=== PATIENT | female | born 1980 | race Caucasian/White ===

== ENCOUNTER → 2017-10-01 15:47 | Outpatient (CLI) | payer OTHER, SELFPAY ==
--- NOTE | 2017-10-01 15:56 | RAD_ITS ---
STUDY: X-RAY - RIGHT KNEE REASON FOR EXAM: Female, 36 years old. Bilateral knee pain. TECHNIQUE: 4 view(s) of the knee including weight bearing AP view. COMPARISON: None. FINDINGS: Normal visualized distal femur. Normal visualized proximal tibia and fibula. Normal proximal tibiofibular articulation. There is no acute fracture, dislocation or destructive osseous pathology. There is mild degenerative arthrosis of the medial femorotibial compartment. There is mild degenerative arthrosis of the lateral femorotibial compartment. There is mild degenerative arthrosis of the patellofemoral articulation. There is no demonstrated joint effusion. The soft tissue structures are unremarkable. RAD/Knee 4 or More Views IMPRESSION: Minimal arthrosis of the right knee. Electronically Signed: James Elise DO at 22:06 EDT Tel [phone], Service support ,
--- NOTE | 2017-10-01 16:00 | RAD_ITS ---
STUDY: X-RAY - LEFT KNEE REASON FOR EXAM: Female, 36 years old. Bilateral knee pain. TECHNIQUE: 4 view(s) of the knee, including an AP weightbearing view. COMPARISON: None. FINDINGS: Normal visualized distal femur. Normal visualized proximal tibia and fibula. Normal proximal tibiofibular articulation. There is no acute fracture, dislocation or destructive osseous pathology. Normal medial femorotibial compartment. There is mild degenerative arthrosis of the lateral femorotibial compartment. There is mild degenerative arthrosis of the patellofemoral articulation. There is no demonstrated joint effusion. The soft tissue structures are unremarkable. RAD/Knee 4 or More Views IMPRESSION: Mild arthrosis of the left knee. Electronically Signed: James Elise DO at 22:09 EDT Tel [phone], Service support ,
== END ==
DX: M22.2X2 Patellofemoral disorders, left knee (principal); M22.2X1 Patellofemoral disorders, right knee
CPT/HCPCS: 73564

== ENCOUNTER 2017-12-22 07:33 | Emergency (ER) | payer OTHER, SELFPAY ==
[2017-12-22 07:33] VITALS: BP 139/91; PULSE 111; RESP 17; TEMP 36.2; O2SAT 98; BMI 48.4
--- NOTE | 2017-12-22 07:59 | ED.DCSUM_ITS ---
- ER Visit Summary Date of Service: 12/22/17 Chief Complaint: Cough, short of breath History of Present Illness: The patient is a 37 F with sore throat mild congestion for the past couple days. Patient states her throat was worse this morning with further sensation of swelling. She did take DayQuil equivalent this morning. She has taken this medication before with no difficulty. She has not had fever or chills. Physical Examination: Blood pressure is 139/91, temperature 97.2, heart rate 111, respiratory rate 17, pulse ox 98% on room air. Patient is sitting up on the side of the bed. She speaks in a hoarse voice. She does have mild stridor noted. TMs are clear bilaterally. She is moist mucous membranes. Posterior pharynx examination is unremarkable. There is mild bilateral cervical lymphadenopathy. Heart is regular rate and rhythm. Lung sounds clear. Abdomen is soft nontender. Test Results: CBC was normal white count hemoglobin 16.0. Chemistry studies reveal glucose of 130. test negative. Soft tissue neck x-ray reveals patent airway with questionable minimal narrowing of the subglottic trachea. CT neck with contrast reveals a patent airway. There is prominent nodes at both sides of the neck, likely reactive. No focal masses noted. Emergency Department Course and Treatment: Patient was given a racemic epinephrine treatment along with IV Benadryl and Solu-Medrol. Upon completion of imaging studies a dose of Rocephin was given. Patient has been observed for 4 hours. At this time she is significantly improved. She is able to lie back in the bed without difficulty. She is tolerating secretions well and does feel improved. Patient will be given steroid taper at home along with Benadryl and Keflex. Treatment Plan: [] Disposition: Discharge Impression: Pharyngitis This note was generated with [employer] dictation software. It may contain incorrect words, spelling, and punctuation that were not noted in review of the chart prior to signing ED Disposition - Plan for ED Patient: Chief Complaint: Cold Sx Referrals: [facility] ,Out of [Primary Care Provider] -
[2017-12-22 08:04] VITALS: PULSE 99; RESP 18
[2017-12-22] MEDS: Racepinephrine HCl 0.5 ML VIAL.NEB. INHALATION (08:04)
--- NOTE | 2017-12-22 08:14 | RAD_ITS ---
STUDY: X-RAY - SOFT TISSUE NECK REASON FOR EXAM: Female, 37 years old. Difficulty breathing. TECHNIQUE: AP and lateral view(s) of the neck were obtained. # of Images: 2 COMPARISON: None. FINDINGS: Normal visualized nasopharynx, oropharynx, hypopharynx. Normal epiglottis. There is minimal narrowing of subglottic trachea Normal prevertebral soft tissue structures. Normal visualized osseous structures. The soft tissue structures are unremarkable. RAD/Neck for Soft Tissue IMPRESSION: Patient airway with questionable minimal narrowing of the subglottic trachea. Electronically Signed: Liang Mckeon MD at 8:40 EDT Tel , Service support ,
[2017-12-22] MEDS: MethylPREDNISolone 125 MG/2 ML Vial IV (08:18)
[2017-12-22] MEDS: DiphenhydrAMINE 50 MG/ML Syringe 25 MG IV (08:18)
[2017-12-22] MEDS: 0.9% Normal Saline 1,000 ML 150 ML IV (08:18)
[2017-12-22 08:29] LABS: Absolute Lymphocyte Count 1.84 X10^3/ul (0.83-4.51); Absolute Neutrophil Count 6.5 X10^3/uL (2.0-7.7); Basophil# 0.04 X10^3/uL; Basophil% 0.4 % (0-1); Eosinophil# 0.23 X10^3/uL; Eosinophils% 2.5 % (0-5); Lymphocyte # 1.84 X10^3/ul (4.0); Lymphocyte % 19.7 % (19-41); Mean Corp Hgb Conc 32.7 g/gl (32-36); Mean Corpuscular Hgb 28.7 pg (27.0-32.0); Mean Corpuscular Volume 87.8 fL (81-99); Mean Platelet Vol. 9.1 fl (6.2-12.0); Monocyte# 0.76 X10^3/uL; Monocyte% 8.1 % (0-10); Neutrophil # 6.46 X10^3/uL (2.7-7.7); Neutrophil % 69.2 % (47-70); Platelet Count 330 K/mm3 (150-450); RBC Distribution Width CV 13.7 % (11.6-14.6); RBC Distribution Width SD 44.2 fl (35.1-43.9); Red Blood Count 5.58 M/mm3 (4.2-5.4); White Blood Count 9.3 K/mm3 (4.4-11.0)
[2017-12-22 08:34] LABS: POSITIVE COUNT NO; POSITIVE DIFFERENTIAL NO; POSITIVE MORPHOLOGY NO
[2017-12-22 08:37] VITALS: PULSE 81; RESP 13; O2SAT 97
[2017-12-22 08:39] LABS: Anion Gap 8 (5-15); BUN 11 mg/dL (7-18); BUN/Creat Ratio 12.1 RATIO (10-20); Calcium,Total 8.7 mg/dL (8.5-10.1); Chloride 105 mmol/L (98-107); Creatinine, Serum 0.91 mg/dL (0.55-1.02); EST Glomerular Filtration Rate 75 mL/min (>60); Est Glom Filt Rate - Afr Amer 90 mL/min (>60); Estimated Creatinine Clearance 80.78 ml/min; Glucose 130 mg/dL (74-106); Potassium 3.5 mmol/L (3.5-5.1); Sodium Level 137 mmol/L (136-145)
[2017-12-22 08:46] LABS: Pregnancy, Serum, hCG Quali. NEGATIVE Negative (0-9 Nonpreg)
--- NOTE | 2017-12-22 08:58 | CT_ITS ---
STUDY: CT SOFT TISSUE NECK WITH CONTRAST REASON FOR EXAM: Female, 37 years old. Difficulty swallowing and cold symptoms. RADIATION DOSAGE (If Supplied By Facility): CTDIvol = ( 23.36 ) mGy, DLP = ( 781.61 ) mGycm TECHNIQUE: The patient was scanned in a multi-detector CT scanner. High resolution transaxial imaging was performed following intravenous administration of 75mL ml of Isovue 300 contrast material. Sagittal and coronal images were reconstructed. # of Images: 328 Individualized dose optimization techniques were used for this CT. COMPARISON: None. FINDINGS: Normal bilateral parotid glands. Normal bilateral speech lang path spaces. Normal bilateral parapharyngeal spaces. Normal bilateral sublingual and submandibular glands and spaces. Normal visualized nasopharynx. Is minimal prominence of the posterior nasopharynx. Normal perivertebral space. Normal visualized bilateral faucial tonsils. The visualized tongue, tongue base and oropharynx are normal. There are slightly enlarged lymph nodes of the neck, with preservation of normal kylah architecture, consistent with a reactive lymph hyperplasia. There is no demonstrated solid or cystic mass lesion. There is no abnormal contrast enhancement. Normal epiglottis, bilateral vallecula and hypopharynx. The pre-epiglottic and paraglottic adipose spaces are normal. Normal visualized bilateral piriform sinuses, aryepiglottic folds, vocal cords, and arytenoid-cricoid articulations. Normal subglottic trachea. Normal bilateral lobes of the thyroid gland. Normal visualized pulmonary apices. Normal visualized paranasal sinuses. There is straightening of the cervical spine. CT/Soft Tissue Neck WITH Contrast IMPRESSION: 1. Patent airway. 2. Prominent nodes on both sides of the neck likely reactive. 3. No focal mass is seen. Electronically Signed: Liang Mckeon MD at 9:37 EDT Tel , Service support ,
[2017-12-22 10:55] VITALS: BP 123/83; PULSE 89; RESP 24; O2SAT 94
[2017-12-22] MEDS: Ceftriaxone 1 GM/50 ML BAG IV (10:56)
--- NOTE | 2017-12-22 11:51 | ED.DEP ---
ED Disposition - Plan for ED Patient: Disposition: Home or Assisted Living Chief Complaint: Cold Sx Instructions: ED Strep Pharyngitis Poss Prescriptions: Cephalexin [Keflex] 500 mg PO Q6 #40 capsule DiphenhydrAMINE [Benadryl] 50 mg PO TID PRN PRN #20 capsule PRN Reason: Allergies Prednisone 10 mg PO DAILY #63 tablet Referrals: [facility] Doctor,Out of [Primary Care Provider] - 5-7 Days
--- NOTE | 2017-12-22 11:56 | DCINST.ED_ITS ---
ED Disposition - Plan for ED Patient: Disposition: Home or Assisted Living Chief Complaint: Cold Sx Instructions: ED Strep Pharyngitis Poss Prescriptions: Cephalexin [Keflex] 500 mg PO Q6 #40 capsule DiphenhydrAMINE [Benadryl] 50 mg PO TID PRN PRN #20 capsule PRN Reason: Allergies Prednisone 10 mg PO DAILY #63 tablet Referrals: [facility] Doctor,Out of [Primary Care Provider] - 5-7 Days
== END 2017-12-22 12:28 | disposition home or self-care (01) ==
PROVIDERS: Emergency Provider Emergency Medicine
DX: J02.9 Acute pharyngitis, unspecified (principal)
CPT/HCPCS: 70360; 70491; 80048; 84703; 85025; 94640; 96361; 96365; 96366; 96375; 99284; J7030; Q9967; A4216

== ENCOUNTER → 2019-05-08 06:18 | Outpatient (CLI) | payer OTHER, SELFPAY ==
[2019-05-08 07:26] LABS: Glucose 75GTT - 30 minutes 166 mg/dL (100-160)
[2019-05-08 07:27] LABS: Glucose 75GTT - Fasting 99 mg/dL (70-99)
[2019-05-08 08:14] LABS: Glucose 75GTT - 60 minutes 163 mg/dL (100-160)
[2019-05-08 08:24] LABS: Insulin 15.7 mU/L (2.6-37.6)
[2019-05-08 09:06] LABS: Glucose 75GTT - 120 minutes 81 mg/dL (70-140)
== END ==
PROVIDERS: Referring Provider Obstetrics & Gynecology Reproductive Endocrinology; Visit Provider Obstetrics & Gynecology Reproductive Endocrinology
DX: E28.2 Polycystic ovarian syndrome (principal)
CPT/HCPCS: 36415; 82951; 82952; 83525

== ENCOUNTER 2020-06-20 05:45 | Emergency (ER) | payer OTHER, SELFPAY ==
[2020-06-20 05:46] VITALS: BP 129/74; PULSE 52; RESP 18; TEMP 36.9; O2SAT 97; BMI 58.6
--- NOTE | 2020-06-20 06:01 | US_ITS ---
STUDY: ABDOMINAL ULTRASOUND - RIGHT UPPER QUADRANT REASON FOR VISIT: Female, 39 years old pain TECHNIQUE: Ultrasound evaluation of the right upper quadrant was performed with real-time and static bangura-scale imaging. TECHNICAL QUALITY: Adequate. COMPARISON: None. FINDINGS: Liver: The liver measures 16.0 cm. There is normal echogenicity of the liver. The bile ducts are within normal limits. There is hepatic color flow. The direction of portal flow is hepatopetal. There is no demonstrated mass lesion. Gallbladder: Normal distended gallbladder. The gallbladder wall measures 2 mm. There is a positive sonographic Ashley''s sign. There is no pericholecystic fluid. There is a solitary echogenic gallstone within the gallbladder. Common Bile Duct (C.B.D.): The common bile duct measures 5 mm. Pancreas: Normal size of the head, body and tail of the pancreas. There is normal echogenicity of the pancreas. There is no demonstrated pancreatic mass or cyst. Right Kidney: Normal size of the right kidney. The right kidney measures 11.2 cm. Normal renal cortex. The right cortex measures 1.3 cm. There is no demonstrated renal mass or cyst. There is no right hydronephrosis. US/Gallbladder IMPRESSION: Cholelithiasis with moderately distended gallbladder and a positive sonographic Ashley sign which may represent acute or chronic cholecystitis. Clinical correlation is recommended. Electronically Signed: Fei Pena MD at 8:29 EDT Tel , Service support ,
[2020-06-20 06:10] LABS: Absolute Lymphocyte Count 0.87 X10^3/uL (0.83-4.51); Basophil# 0.03 X10^3/uL; Basophil% 0.3 % (0-1); Eosinophils% 2.3 % (0-5); Hematocrit 41.2 % (37-47); Hemoglobin 13.5 g/dL (12.0-15.0); Lymphocyte # 0.87 X10^3/ul (0.83-4.51); Lymphocyte % 10.1 % (19-41); Mean Corp Hgb Conc 32.8 g/dL (32-36); Mean Corpuscular Hgb 28.9 pg (27.0-32.0); Mean Corpuscular Volume 88.2 fL (81-99); Mean Platelet Vol. 9.6 fl (6.2-12.0); Monocyte# 0.43 X10^3/uL; NRBC Flagged by Analyzer 0 % (0-5); Neutrophil # 7.03 X10^3/uL (2.7-7.7); Platelet Count 348 K/mm3 (150-450); RBC Distribution Width CV 14.3 % (11.6-14.6); RBC Distribution Width SD 45.5 fl (35.1-43.9); Red Blood Count 4.67 M/mm3 (4.2-5.4); White Blood Count 8.6 K/mm3 (4.4-11.0)
[2020-06-20] MEDS: Morphine 4 MG/ML Syringe IV (06:15)
[2020-06-20] MEDS: Ondansetron 4 MG/2 ML Vial IV (06:15)
[2020-06-20 06:28] LABS: AST(SGOT) 56 U/L (15-37); Alanine Aminotransfer ALT/SGPT 47 U/L (13-56); Albumin, Serum 2.7 g/dL (3.2-5.0); Alkaline Phosphatase 81 U/L (45-117); Anion Gap 8 (5-15); BUN 5 mg/dL (7-18); BUN/Creat Ratio 8.7 RATIO (10-20); Bilirubin, Direct < 0.05 mg/dL (0.00-0.30); Chloride 106 mmol/L (98-107); Creatinine, Serum 0.58 mg/dL (0.55-1.02); EST Glomerular Filtration Rate 125 mL/min (>60); Est Glom Filt Rate - Afr Amer 152 mL/min (>60); Estimated Creatinine Clearance 124.32 ml/min; Globulin 3.8 g/dL (2.2-4.2); Glucose 107 mg/dL (74-106); Lipase 46 U/L (73-393); Potassium 4.4 mmol/L (3.5-5.1); Protein, Total 6.5 g/dL (6.4-8.2); Sodium Level 137 mmol/L (136-145)
[2020-06-20] MEDS: 0.9% Normal Saline 1,000 ML 150 ML IV (06:32)
[2020-06-20 08:00] VITALS: BP 132/78; PULSE 58; RESP 15; O2SAT 99
[2020-06-20] MEDS: HYDROmorphone 0.5 MG/0.5 ML SYRINGE IV (08:41)
--- NOTE | 2020-06-20 09:01 | ED.DCSUM_ITS ---
History of Present Illness Chief Complaint: Abd Pain Informant: Patient Onset: Today Current Severity: Moderate Maximum Severity: Moderate Narrative: Patient presents secondary to upper abdominal pain. Patient is presently 22 weeks . She reports upper abdominal pain that woke her at 2 AM this morning. She believes she is having a gallbladder attack and reports history of similar, although her gallbladder has never formally been worked up. Patient does report nausea with a couple episodes of vomiting. No fever or chills. Past Medical History - Allergies and Home Meds Allergies/Adverse Reactions: Allergies No Known Allergies Allergy (Verified 06/20/20 05:46) Primary Care Physician: Care Physician,No Primary [Primary Care Provider] - Prior records reviewed: Yes Lives: Spouse/ Significant Other Smoking Status: Never smoker Review of Systems General: Denies: Chills, Fever Eyes: Denies: Visual changes - bilaterally ENT: Denies: Bilateral ear pain Cardiovascular: Denies: Chest pain Respiratory: Denies: Dyspnea, Cough Gastrointestinal: Reports: Abdominal pain, Nausea, Vomiting. Denies: Diarrhea Genitourinary: Denies: Dysuria Musculoskeletal: Denies: Swelling, Extremity Pain Neurological: Denies: Headache Hematologic: Denies: Easy bruising, Easy bleeding Allergy: Denies: Uticaria Physical Exam Vital Signs/Narrative: Vital Signs Temp Pulse Resp BP Pulse Ox 06/20/20 08:00 58 L 15 132/78 H 99 06/20/20 05:46 98.5 F 52 L 18 129/74 H 97 Inital Vital Signs reviewed: Yes General: Well nourished, Well developed Head: Normocephalic ENT: Moist mucous membranes Neck: Supple Cardiovascular: Regular rate, Regular rhythm Respiratory: No distress, CTA bilaterally Abdomen: Soft, Tender - Epigastric and right upper quadrant tenderness.. Negative for: Guarding, Rebound tenderness Extremities: Nontender Skin: Normal color Neurological: Alert, Oriented x3 Psychological: Normal affect Diagnostic/Tx/Re-eval IMPRESSION: Cholelithiasis with moderately distended gallbladder and a positive sonographic Ashley sign which may represent acute or chronic cholecystitis. Clinical correlation is recommended. 06/20/20 06:01 US Gallbladder [Gallbladder] [US] Stat Laboratory Results 06/20/20 06/20/20 05:57 05:57 WBC 8.6 RBC 4.67 Hgb 13.5 Hct 41.2 MCV 88.2 MCH 28.9 MCHC 32.8 RDW Std Deviation 45.5 H RDW Coeff of Fredrick 14.3 Plt Count 348 MPV 9.6 Immature Gran % (Auto) 0.300 Neut % (Auto) 82.0 H Lymph % (Auto) 10.1 L [place] % (Auto) 5.0 Eos % (Auto) 2.3 Baso % (Auto) 0.3 Absolute Neuts (auto) 7.0 Absolute Lymphs (auto) 0.87 Nucleated RBC % 0 Sodium 137 Potassium 4.4 Chloride 106 Carbon Dioxide 23.0 Anion Gap 8 BUN 5 L Creatinine 0.58 Estim Creat Clear Calc 124.32 Est GFR (MDRD) Af Amer 152 Est GFR (MDRD) Non-Af 125 BUN/Creatinine Ratio 8.7 L Glucose 107 H Calcium 9.0 Total Bilirubin 0.40 Direct Bilirubin < 0.05 AST 56 H ALT 47 Alkaline Phosphatase 81 Total Protein 6.5 Albumin 2.7 L Globulin 3.8 Lipase 46 L - Medical Decision Making Patient was initially given morphine and Zofran for pain control. CBC and chemistry studies largely unremarkable. AST is slightly elevated but remainder of LFTs are all normal. Patient is taken to ultrasound for right upper quadrant scan. This does reveal evidence of cholelithiasis with moderately distended gallbladder and a positive sonographic Ashley sign. This may represent acute or chronic cholecystitis. Gallbladder wall measures 2 mm and common bile duct measures 5 mm. There is no pericholecystic fluid. On repeat examination patient still notes pain. I spoke with Dr. Nieves, on- call for surgery. He requested we try Dilaudid for pain control and he will present to see the patient. This will be signed out to oncoming physician for final disposition. ED Disposition - Plan for ED Patient: Referrals: Care Physician,No Primary [Primary Care Provider] -
--- NOTE | 2020-06-20 09:52 | ED.RN ---
attempted to get heart tones without success. ob will be up to assess pt
[2020-06-20 10:01] VITALS: BP 138/79; PULSE 59; RESP 15; O2SAT 99
--- NOTE | 2020-06-20 10:23 | NURSING ---
Doppler FHT 140
--- NOTE | 2020-06-20 10:27 | PCM.CONS.GEN ---
Problem List (1) Right upper quadrant abdominal pain Status: Acute (2) Cholelithiasis Status: Acute Qualifiers: Cholelithiasis location: gallbladder Cholecystitis presence: without cholecystitis Biliary obstruction: without biliary obstruction Qualified Code(s): K80.20 - Calculus of gallbladder without cholecystitis without obstruction Reason for Consult Date of Consultation: 06/20/20 History of Present Illness: The patient is a 39 year old F Patient presents secondary to upper abdominal pain. Patient is presently 22 weeks . She reports upper abdominal pain that woke her at 2 AM this morning. She believes she is having a gallbladder attack and reports history of similar, although her gallbladder has never formally been worked up. Patient does report nausea with a couple episodes of vomiting. No fever or chills. Gallbladder ultrasound showed a solitary stone with no pericholecystic fluid with a normal gallbladder wall thickness. Past Medical History Allergies No Known Allergies Allergy (Verified 06/20/20 05:46) Home Medications: Ambulatory Orders Medication Instructions Recorded Metformin HCl [Metformin HCl ER] 750 mg PO BID 06/20/20 Vit No.130/Iron/Folic 1 each PO DAILY 06/20/20 [ Tablet] Surgical History: no surgical history Lives: Spouse/ Significant Other Smoking Status: Never smoker - *Family History Maternal History Items: No pertinent history Review of Systems Constitutional: Denies: Chills, Fever, Weight Change Gastrointestinal: Reports: Abdominal Pain, Nausea Patient Problems: Active and Suspected Problems Right upper quadrant abdominal pain (Acute) Cholelithiasis (Acute) - Physical Exam Vitals/I&O's: Vital Signs Temp Pulse Resp BP Pulse Ox 98.5 F 59 L 15 138/79 H 99 06/20/20 05:46 06/20/20 10:01 06/20/20 10:01 06/20/20 10:01 06/20/20 10:01 Oxygen Delivery Method Room Air Weight: 362 lb 14.094 oz Body Mass Index (BMI) 58.6 General: Alert, Oriented x3 Lungs: Clear to auscultation Cardiovascular: Regular rate, Regular Rhythm, No murmurs Abdomen: Soft - No real abdominal pain at this time. No rebound guarding or peritoneal signs are identified. She is morbidly obese. I cannot feel the fundus of the uterus. Laboratory Results 06/20/20 05:57: WBC 8.6, RBC 4.67, Hgb 13.5, Hct 41.2, MCV 88.2, MCH 28.9, MCHC 32.8, RDW Std Deviation 45.5 H, RDW Coeff of Fredrick 14.3, Plt Count 348, MPV 9.6, Immature Gran % (Auto) 0.300, Neut % (Auto) 82.0 H, Lymph % (Auto) 10.1 L, Stephenson % (Auto) 5.0, Eos % (Auto) 2.3, Baso % (Auto) 0.3, Absolute Neuts (auto) 7.0, Absolute Lymphs (auto) 0.87, Nucleated RBC % 0 06/20/20 05:57: Sodium 137, Potassium 4.4, Chloride 106, Carbon Dioxide 23.0, Anion Gap 8, BUN 5 L, Creatinine 0.58, Estim Creat Clear Calc 124.32, Est GFR (MDRD) Af Amer 152, Est GFR (MDRD) Non-Af 125, BUN/Creatinine Ratio 8.7 L, Glucose 107 H, Calcium 9.0, Total Bilirubin 0.40, Direct Bilirubin < 0.05, AST 56 H, ALT 47, Alkaline Phosphatase 81, Total Protein 6.5, Albumin 2.7 L, Globulin 3.8, Lipase 46 L Current Medications Sodium Chloride () 1,000 mls @ 150 mls/hr IV .Q6H40M [facility] Last Admin: 06/20/20 06:32 Dose: 150 mls/hr Documented by: Assessment/Plan All Active Problems Right upper quadrant abdominal pain (Acute) Cholelithiasis (Acute) Believe we can manage her as an outpatient fashion. I have counseled her though that if she were to develop another attack over the next several days we unfortunately are going to have to consider doing a laparoscopic cholecystectomy on her. However since she has not experienced any further attacks except for the one she had 3 years ago I think that there is a good chance that she is not going to have any problems with the remainder of her . I however have counseled her that once she has delivered she is going to seriously have to consider having her gallbladder removed to overt any further episodes of cholecystitis.
--- NOTE | 2020-06-20 10:36 | ED.DEP ---
ED Disposition - Plan for ED Patient: Instructions: ED Gallstones with Biliary Colic Prescriptions: Hydrocodone Bitart/Apap 5-325 [[place] 5MG-325MG] 1 tablet PO Q6H PRN PRN 3 Days #10 tablet PRN Reason: Pain Ondansetron [Zofran Odt] 4 mg PO Q8H PRN PRN #10 tablet PRN Reason: Nausea Referrals: Codey Nieves MD [STAFF PHYSICIAN] - Khushboo Malone MD [STAFF PHYSICIAN] -
[2020-06-20 10:44] VITALS: BP 140/83; PULSE 58; RESP 16
== END 2020-06-20 10:45 | disposition home or self-care (01) ==
PROVIDERS: Emergency Provider Emergency Medicine
DX: O26.892 Other specified pregnancy related conditions, second trimester (principal); O99.612 Diseases of the digestive system complicating pregnancy, second trimester; R10.9 Unspecified abdominal pain; K80.20 Calculus of gallbladder without cholecystitis without obstruction; Z3A.22 22 weeks gestation of pregnancy
CPT/HCPCS: 76705; 80048; 80076; 83690; 85025; 96361; 96374; 96375; 96376; 99283; J7030; A4216; J2405

== ENCOUNTER 2020-08-26 11:30 | Outpatient (RCR) | payer OTHER, SELFPAY | END 2020-09-01 23:59 | LOC: DC 11:30 | PROVIDERS: Visit Provider Obstetrics & Gynecology | DX: O24.410 Gestational diabetes mellitus in pregnancy, diet controlled (principal); Z3A.00 Weeks of gestation of pregnancy not specified | CPT/HCPCS: 97802; G0108 ==

== ENCOUNTER 2020-09-16 15:00 | Outpatient (RCR) | payer OTHER, SELFPAY | END 2020-09-16 23:59 | disposition home or self-care (01) | LOC: DC 15:00 | PROVIDERS: Visit Provider Obstetrics & Gynecology | DX: O24.410 Gestational diabetes mellitus in pregnancy, diet controlled (principal); Z3A.00 Weeks of gestation of pregnancy not specified ==

== ENCOUNTER 2020-10-17 18:45 | Inpatient (IN) | payer OTHER, SELFPAY ==
[2020-10-17] VITALS (14 sets, daily range): BP systolic 140–180; BP diastolic 82–99; PULSE 74–91; TEMP 37.2–37.3; O2SAT 99; BMI 55.2
[2020-10-17] MEDS: Lactated Ringers 1,000 ML 50 ML IV (19:45)
[2020-10-17 20:01] LABS: Absolute Lymphocyte Count 1.36 X10^3/uL (0.83-4.51); Absolute Neutrophil Count 8.2 X10^3/uL (2.0-7.7); Basophil# 0.05 X10^3/uL; Basophil% 0.5 % (0-1); Eosinophil# 0.16 X10^3/uL; Eosinophils% 1.5 % (0-5); Hematocrit 40.2 % (37-47); Hemoglobin 13.2 g/dL (12.0-15.0); Lymphocyte # 1.36 X10^3/ul (0.83-4.51); Lymphocyte % 13.1 % (19-41); Mean Corp Hgb Conc 32.8 g/dL (32-36); Mean Corpuscular Hgb 29.9 pg (27.0-32.0); Mean Platelet Vol. 11.4 fl (6.2-12.0); Monocyte# 0.59 X10^3/uL; Monocyte% 5.7 % (0-10); NRBC Flagged by Analyzer 0 % (0-5); Neutrophil % 78.7 % (47-70); Platelet Count 289 K/mm3 (150-450); RBC Distribution Width CV 13.2 % (11.6-14.6); RBC Distribution Width SD 43.4 fl (35.1-43.9); Red Blood Count 4.42 M/mm3 (4.2-5.4); White Blood Count 10.4 K/mm3 (4.4-11.0)
[2020-10-17 20:11] LABS: Bedside Glucose 103 mg/dL (70-110)
[2020-10-17] MEDS: Oxytocin 30 units/NS 500 ml 30 UNITS/500 ML IV.SOLN IV (20:40)
[2020-10-17 20:54] LABS: AST(SGOT) 25 U/L (15-37); Alanine Aminotransfer ALT/SGPT 43 U/L (13-56); Creatinine, Serum 0.76 mg/dL (0.55-1.02); EST Glomerular Filtration Rate 90 mL/min (>60); Est Glom Filt Rate - Afr Amer 109 mL/min (>60); Estimated Creatinine Clearance 94.88 ml/min; Uric Acid 5.4 mg/dL (2.6-6.0)
[2020-10-17 21:26] LABS: Bedside Glucose 103 mg/dL (70-110)
[2020-10-17] MEDS: Lactated Ringers 500 ML 999 ML IV (22:46)
[2020-10-18] VITALS (51 sets, daily range): BP systolic 104–155; BP diastolic 56–82; PULSE 58–120; TEMP 36.2–37.3; O2SAT 93–99
[2020-10-18] MEDS: fentaNYL-bupivacaine (epidural) 100 ML BAG EPIDURAL ×5 (00:08→19:46)
[2020-10-18] MEDS: Penicillin G 3,000,000 Units 50 ML 100 UNITS IV ×6 (01:00→20:48)
[2020-10-18 01:11] LABS: Bedside Glucose 84 mg/dL (70-110)
[2020-10-18] MEDS: Lactated Ringers 500 ML 999 ML IV (02:51)
[2020-10-18] MEDS: Lactated Ringers 1,000 ML 200 ML IV ×4 (03:59→20:29)
[2020-10-18 05:16] LABS: Bedside Glucose 89 mg/dL (70-110)
[2020-10-18 06:59] LABS: Protein, Urine (Random) 18.1 mg/dL (<11.9); Protein:Creat Ratio 139 mg/g CRE (0-200)
--- NOTE | 2020-10-18 08:38 | PCM.HP.OB ---
HPI - General General Date of Admission: 10/17/20 Chief Complaint: induction of labor HPI Narrative ANNE HERZOG, is a 39-year-old 1 para 0 who presents for induction of labor. EDC is 10/25/2020 by artificial reproductive technology dating. has been complicated to date by maternal obesity with BMI 55, gestational diabetes and she has been on Metformin but not insulin. She has a history of infertility. This was conceived through IVF. She is also had episodes of cholecystitis during the . [facility] Medical History (Updated 10/18/20 @ 08:[address] Sumaya Urbina MD) Gestational diabetes Infertility Home Medications metformin 750 mg PO BID 06/20/20 [History Last Taken 10/17/20 07:30] ondansetron 4 mg PO Q8H PRN PRN #10 tablet 06/20/20 [Rx Last Taken Unknown] vit no.[id number] 1 each PO DAILY 06/20/20 [History Last Taken 10/17/20 07:30] Allergy/AdvReac Type Severity Reaction Status Date / Time No Known Allergies Allergy Verified 06/20/20 05:46 Social History Smoking Status: Smoker, status unknown History Elective abortions Hx Para 0 Spontaneous abortions Hx # Term Pregnancies Ectopic pregnancies Hx # Pregnancies Multiple births # of living children ROS Constitutional Constitutional: Denies fatigue, fever(s) or malaise Eyes Eyes: Denies change in vision ENT HEENT: Denies dizziness or headache(s) Cardiovascular Cardiovascular: Denies chest pain, dyspnea or lightheadedness Respiratory/Chest Respiratory/Chest: Denies cough or dyspnea Gastrointestinal Gastrointestinal: Denies change in bowel habits Genitourinary Genitourinary: Denies burning urination or genital lesions Integumentary Integumentary: Denies rash Neurologic Neurologic: Denies confusion, dizziness, headache(s), numbness or weakness Vital Signs Vital Signs Vital Signs: 10/17/20 19:20 10/17/20 19:23 10/17/20 19:42 Temperature 99.1 F Temperature Source Temporal Pulse Rate 91 84 Blood Pressure 170/99 H 140/93 H BP Systolic 170 140 BP Diastolic 99 93 Pulse Ox 10/17/20 20:42 10/17/20 21:59 10/17/20 23:30 Temperature 98.9 F Temperature Source Pulse Rate 74 78 Blood Pressure 145/92 H 141/89 H BP Systolic 145 141 BP Diastolic 92 89 Pulse Ox 99 10/17/20 23:31 10/17/20 23:35 10/17/20 23:40 Temperature Temperature Source Pulse Rate 78 75 85 Blood Pressure 180/94 H 173/94 H BP Systolic 180 173 BP Diastolic 94 94 Pulse Ox 99 99 10/17/20 23:44 10/17/20 23:45 10/17/20 23:50 Temperature Temperature Source Pulse Rate 74 81 Blood Pressure 147/82 H BP Systolic 147 BP Diastolic 82 Pulse Ox 99 99 10/17/20 23:51 10/17/20 23:55 10/18/20 00:00 Temperature Temperature Source Pulse Rate 77 77 86 Blood Pressure 163/84 H 152/82 H 155/82 H BP Systolic 163 152 155 BP Diastolic 84 82 82 Pulse Ox 99 99 10/18/20 00:06 10/18/20 00:10 10/18/20 00:11 Temperature Temperature Source Pulse Rate 97 97 109 H Blood Pressure 144/78 H 138/82 H BP Systolic 144 138 BP Diastolic 78 82 Pulse Ox 98 98 10/18/20 00:15 10/18/20 00:16 10/18/20 00:20 Temperature Temperature Source Pulse Rate 87 85 78 Blood Pressure 138/72 H 134/73 H BP Systolic 138 134 BP Diastolic 72 73 Pulse Ox 97 10/18/20 00:21 10/18/20 00:25 10/18/20 00:26 Temperature Temperature Source Pulse Rate 90 72 75 Blood Pressure 137/75 H BP Systolic 137 BP Diastolic 75 Pulse Ox 97 97 10/18/20 00:31 10/18/20 00:35 10/18/20 00:36 Temperature Temperature Source Pulse Rate 84 69 71 Blood Pressure 123/75 H 129/79 H BP Systolic 123 129 BP Diastolic 75 79 Pulse Ox 97 96 10/18/20 01:04 10/18/20 02:01 10/18/20 02:02 Temperature 97.9 F 97.6 F L Temperature Source Temporal Pulse Rate 71 85 Blood Pressure 107/57 L 134/64 H BP Systolic 107 134 BP Diastolic 57 64 Pulse Ox 10/18/20 02:54 10/18/20 03:45 10/18/20 03:46 Temperature 97.7 F L Temperature Source Temporal Pulse Rate 76 73 Blood Pressure 114/68 118/56 L BP Systolic 114 118 BP Diastolic 68 56 Pulse Ox 97 10/18/20 04:59 10/18/20 06:29 10/18/20 07:13 Temperature 97.4 F L Temperature Source Temporal Pulse Rate 67 61 68 Blood Pressure 113/56 L 122/66 H 118/68 BP Systolic 113 122 118 BP Diastolic 56 66 68 Pulse Ox 96 Weight Weight: 155.299 kg Body Mass Index (BMI) 55.2 Physical Exam Const alert and no apparent distress General Appearance: cooperative HEENT normocephalic Resp normal respiratory effort Cardio regular rate GI soft to palpation GI Narrative: gravid, nontender, appropriate for gestational age Extremity no calf tenderness General Extremity: edema Skin no wounds Rashes: No rashes noted Psych activity/motor behavior normal Labs Labs Labs: Blood Type O POSITIVE Antibody Screen NEGATIVE Hct 40.2 % (37-47) Hgb 13.2 g/dL (12.0-15.0) Assessment & Plan (1) 39 weeks gestation of : (2) Supervision of high risk primigravida in third trimester in patient 35 years or older at time of delivery: PLAN: Response alternatives to induction labor him discussed with patient, questions were answered to her satisfaction she desires to proceed. Estimated weight is less than 4500 g clinically and by ultrasound and pelvis clinically adequate to expect vaginal delivery. Patient has not been on insulin but has had gestational diabetes and has been on Metformin with reasonable control. She did have elevated blood sugars even on the Metformin but was not started on insulin due to being late in the third trimester and close to delivery. She was able to maintain less than 50% abnormal blood sugars. We will proceed with Pitocin and artificial rupture membranes. Cervix was 3-1/2 cm, 80% effaced, medium consistency, midposition and -4 station. Artificial rupture membranes was performed by me this morning with return of large amount of clear fluid. Internal scalp electrode and IUPC were used to help titrate Pitocin to adequacy and to help maintain monitoring. Epidural was in place and adequate. Continue to monitor blood sugars. (3) Maternal obesity syndrome in third trimester: (4) BMI 50.0-59.9, adult: (5) Gestational diabetes requiring insulin:
[2020-10-18 09:10] LABS: Bedside Glucose 81 mg/dL (70-110)
[2020-10-18 13:20] LABS: Bedside Glucose 82 mg/dL (70-110)
[2020-10-18] MEDS: Ondansetron 4 MG/2 ML Vial IV ×2 (13:44→20:36)
[2020-10-18 16:21] LABS: Bedside Glucose 67 mg/dL (70-110)
[2020-10-18 17:26] LABS: Bedside Glucose 101 mg/dL (70-110)
[2020-10-18] MEDS: Acetaminophen 500 MG Tablet PO (19:36)
[2020-10-18 20:21] LABS: Bedside Glucose 98 mg/dL (70-110)
[2020-10-18] MEDS: Oxytocin 30 units/NS 500 ml 30 UNITS/500 ML IV.SOLN 334 UNITS IV (21:14)
[2020-10-18] MEDS: miSOPROStol 200 MCG Tablet 800 MCG RC (21:34)
--- NOTE | 2020-10-18 21:41 | OP.PCM_ITS ---
Assessment & Plan (1) Vacuum extraction, delivered, current hospitalization: (2) Delivery outcome of liveborn : (3) Second degree laceration of perineum, delivered, current hospitalization: Maternal Data Information Final TEOFILO: 10/25/20 Gestational age: 39 weeks Vaginal Delivery Maternal Presentation Maternal Presentation: Medically Indicated Induction Type of Induction: Pitocin and Amniotomy Operative Information Date of Procedure: 10/18/20 Pre-Operative Diagnosis: labor Post-Operative Diagnosis: same Surgery / Procedure Performed: Vacuum Assisted Vaginal Delivery (outlet) Type of Anesthesia: Epidural Special Medications: none Drain: Cruz to straight drain Estimated Blood Loss: 650 Time of Delivery: 21:10 Findings Description of Procedure: The patient was comfortable, complete and pushing, position was NOE. head was on the perineum at the outlet. Cruz catheter was in place. Pelvis is clinically adequate. Discussed with patient option of continued pushing versus outlet trial of vacuum. Patient desired to try attempt vacuum before she was completely exhausted. She had been pushing for 3 hours. The vacuum was placed on the flexion point and the suction created to 500 mmHg. I pulled with 2 pulls and no pop offs. The vacuum was removed and the head was . The head was delivered on the next maternal push. A vigorous female infant was delivered NOE over a second-degree perineal laceration. A loose nuchal cord ?1 was easily reduced. The remainder the was delivered with maternal pushing and gentle traction only in less than 15 seconds. The Pitocin infusion was initiated for active management of the third stage. The cord was clamped and cut after 1 minute. The was attended to by the waiting nursing staff. The placenta was delivered spontaneously and intact. The cervix and vagina were intact. The second-degree perineal laceration was repaired with 3-0 Vicryl suture in a running standard fashion. The first-degree vaginal laceration was repaired with 3-0 Vicryl suture. 3-0 Vicryl suture was used to finish the second-degree perineal laceration. Sponge and needle counts were correct. The uterus was somewhat boggy and several clots were removed. There is no active hemorrhage. Cytotec 800 mcg rectally was placed and the uterus was firm. A vaginal sweep was completed by me. Presentation: NOE Amniotic Membrane Rupture Type: Artificial Amniotic Fluid Description: Clear Placental Delivery Description: Spontaneous Placenta Disposition: [facility] Cord Vessel Description: 3 Vessels Cord Entanglement: Around neck x 1, loose Cord Gases: ABG and VBG Infant A Gender: Female ([place]) (1 minute): 9 (5 minute): 9 Delayed Cord Clamping: Yes Post Vaginal Delivery Medications Given After Delivery: IV Pitocin and - (Cytotec 800 mcg vaginally for atony without hemorrhage) Episiotomy Description: None Laceration: 2nd degree (perineal) Complication Complications: None Admit VTE Documentation VTE Present on Admission: No VTE Pharm Prophylaxis Ordered: No Reason Prophylaxis Not Ordered: Procedure Not Indicated
[2020-10-18 22:36] LABS: Bedside Glucose 81 mg/dL (70-110)
[2020-10-18 22:36] LABS: Bedside Glucose 90 mg/dL (70-110)
[2020-10-18] MEDS: Ibuprofen 600 MG Tablet PO (22:43)
[2020-10-19] VITALS (10 sets, daily range): BP systolic 129–140; BP diastolic 74–94; PULSE 65–105; RESP 16–20; TEMP 36.1–37.3; O2SAT 96–98
[2020-10-19] MEDS: 0.9% Saline Lock 10 ML Syringe IV (00:05)
[2020-10-19] MEDS: Acetaminophen 500 MG Tablet 1000 MG PO ×3 (02:32→20:13)
[2020-10-19 05:35] LABS: Hematocrit 34.2 % (37-47); Hemoglobin 11.4 g/dL (12.0-15.0); Mean Corp Hgb Conc 33.3 g/dL (32-36); Mean Corpuscular Hgb 30.2 pg (27.0-32.0); Mean Corpuscular Volume 90.7 fL (81-99); Mean Platelet Vol. 10.6 fl (6.2-12.0); Platelet Count 272 K/mm3 (150-450); RBC Distribution Width CV 13.2 % (11.6-14.6); RBC Distribution Width SD 43.8 fl (35.1-43.9); Red Blood Count 3.77 M/mm3 (4.2-5.4); White Blood Count 12.2 K/mm3 (4.4-11.0)
[2020-10-19 05:36] LABS: Bedside Glucose 93 mg/dL (70-110)
--- NOTE | 2020-10-19 07:21 | NURSING ---
Report given to Yobany Rdz RN and Evan Moreno RN, assuming care of pt at this time
[2020-10-19] MEDS: Ibuprofen 600 MG Tablet PO ×2 (08:27→16:57)
[2020-10-19] MEDS: Benzocaine/Lanolin/Aloe Vera 1 SPRAY EACH TOPICAL (11:38)
--- NOTE | 2020-10-19 12:02 | PCM.PN.OB ---
Subjective Subjective Patient seen at bedside. She is up ambulating in room and voiding without difficulty. Breast feeding with support. Pain is controlled. Desires discharge home tomorrow evening. Objective Data Objective Data Fasting glucose was 93 Vital Signs: Vital Signs Temp Pulse Resp BP Pulse Ox 97.5 F L 72 18 138/85 H 96 10/19/20 11:57 10/19/20 11:58 10/19/20 11:57 10/19/20 11:58 10/19/20 08:36 Oxygen Delivery Method Room Air Weight: 342 lb 6 oz Body Mass Index (BMI) 55.2 Intake & Output: Intake and Output for Last 24 Hours 10/17/20 10/18/20 10/19/20 23:59 23:59 23:59 Intake Total 620.23 / 620.23 4875.55 / 5197.42 321.87 / 321.87 Output Total 2500 / 2500 450 / 450 Balance 620.23 / 620.23 2375.55 / 2697.42 -128.13 / -128.13 Lab / Micro Data Result Diagrams: 10/19/20 05:20 10/17/20 19:45 Labs: Laboratory Results - last 24 hr 10/18/20 13:15: POC Glucose 82 10/18/20 16:14: POC Glucose 67 L 10/18/20 17:08: POC Glucose 101 10/18/20 19:32: POC Glucose 98 10/18/20 20:33: POC Glucose 81 10/18/20 22:19: POC Glucose 90 10/19/20 05:20: WBC 12.2 H, RBC 3.77 L, Hgb 11.4 L, Hct 34.2 L, MCV 90.7, MCH 30.2, MCHC 33.3, RDW Std Deviation 43.8, RDW Coeff of Fredrick 13.2, Plt Count 272, MPV 10.6 10/19/20 05:23: POC Glucose 93 ROS Eyes Eyes: Denies blurry vision, change in vision or spots in vision ENT HEENT: Denies dizziness or headache(s) Cardiovascular Cardiovascular: Denies abdominal pain, chest pain or dyspnea Respiratory/Chest Respiratory/Chest: Denies cough, dyspnea, shortness of breath at rest or shortness of breath with exertion Gastrointestinal Gastrointestinal: Denies abdominal pain, diarrhea or vomiting Genitourinary Genitourinary: Denies change in urinary stream, difficulty urinating or dysuria Musculoskeletal Musculoskeletal: Reports none Integumentary Integumentary: Denies rash Neurologic Neurologic: Denies dizziness, headache(s), memory loss or weakness Physical Exam Const alert and no apparent distress General Appearance: cooperative and comfortable Exam Limitations: no limitations HEENT normocephalic Eyes General Eye: normal appearance of both eyes Neck full ROM General: normal visual inspection Chest Chest: symmetrical chest wall rise Resp normal respiratory effort and normal air movement Effort and Inspection: symmetric chest movement Auscultation: clear to auscultation bilaterally Cardio regular rate and regular rhythm GI normal to inspection, nondistended, normoactive bowel sounds Back/Spine normal ROM Extremity full ROM and no calf tenderness General Extremity: normal exam except as noted Skin no rashes or lesions noted Neuro CN's II-XII intact bilaterally Psych mental status grossly normal Assessment & Plan (1) Second degree laceration of perineum, delivered, current hospitalization: (2) Delivery outcome of liveborn infant: QUALIFIERS: Number of infants delivered: single infant Qualified Code(s): Z37.0 - Single live (3) Vacuum extraction, delivered, current hospitalization: (4) BMI 50.0-59.9, adult: (5) Gestational diabetes mellitus (GDM): QUALIFIERS: Gestational diabetes mellitus control: oral hypoglycemic-controlled Trimester: unspecified trimester Qualified Code(s): O24.415 - Gestational diabetes mellitus in , controlled by oral hypoglycemic drugs PLAN: PPD Day 1 Vacuum delivery Routine care Pain control support Anticipate discharge home tomorrow
--- NOTE | 2020-10-19 12:15 | NURSING ---
Robert Colvin CNM notified of patient's blood pressures and lower extremity swelling. No other symptoms. Continue to monitor blood pressures.
--- NOTE | 2020-10-19 12:49 | CASEMGMT ---
Brief Social Work Assessment Labor and Delivery Unit Date/Time of Referral: 10/18/20, 23:37 Referred by: Noah Wiseman MD Date/Time of Intervention: 10/19/20, 12:00pm Reason for Referral: Maternal history of anxiety and depression History obtained from: MIRANDA Household Composition: MIRANDA, PATRICE Bhat, and now baby Danelle. MIRANDA and PATRICE have been together for 7 years. Patient's parent/guardian status: MOB and JOSEB are guardians Medical History: MOB: gestational diabetes, infertility, cholecystitis twice during . Baby: Born 10/18/20, 21:10, 3405 grams. Apgars 9 and 9 at 1 and five minutes. Shoulder dystocia x 18 seconds. Hydrochloric Acid Operator through [facility] Educational Status: MIRANDA has masters degree, PATRICE has associates degree Financial Status: No financial concerns, both MOB and PATRICE work. 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 She plans to return to work after 12 weeks. Her grandmother will watch the baby. Supplies: Family has all needed supplies for baby including car seat, crib, bassinet, diapers, clothing. MOB plans to breast feed. Childcare/Caregivers: MOB, PATRICE, maternal grandmother Transportation: Family has two cars Programs/Agencies involved: None Children's Services/Legal Issues: None Behavioral health issues: Mental Health History: MIRANDA, as per MIRANDA, she actually has no history of depression or anxiety. PATRICE also has no mental health history. 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 PATRICE has family in [place]. MOB states all are supportive. Depression and Anxiety/Shaken Baby/Safe Sleeping/Help Me Grow: [facility] provided information and reviewed information on all of these topics with MOB. She states will speak w/senior engineering associate should she want a referral to Help Me Grow. [facility] did also give MOB a list of [facility] resources and pointed out [facility] number as a hotline in event it would be needed. Assessment: MOB answered all questions appropriately. MOB states to [facility] that she has NO history of anxiety and depression, so is not certain where this came from. SW offered support in regard to this referral being made when she is stating does not have depression or anxiety. MOB was not really upset by it and still willingly and openly spoke w/SW. SW did review all information as stated and MOB very open to it, is familiar w/ as had friends struggle with it and speak w/her about it as well. Plan: Baby will go home w/MOB and FOB. No social service needs at this time. ISRRAEL Hicks
[2020-10-20 02:14] VITALS: BP 146/84; PULSE 61; RESP 16; TEMP 36.3; O2SAT 99
[2020-10-20] MEDS: Ibuprofen 600 MG Tablet PO (02:21)
[2020-10-20] MEDS: Acetaminophen 500 MG Tablet 1000 MG PO (08:13)
[2020-10-20 08:21] VITALS: BP 129/65; PULSE 64; RESP 16; TEMP 36.4; O2SAT 99
--- NOTE | 2020-10-20 08:27 | PCM.PN.OB ---
Subjective Subjective Patient seen at bedside, doing well. Patient reports good pain control. Mild lochia. Breast-feeding without difficulty. Urinating without difficulty. Denies any headaches, visual changes right upper quadrant epigastric pain. Objective Data Objective Data Vital Signs: Vital Signs Temp Pulse Resp BP Pulse Ox 97.5 F L 64 16 129/65 H 99 10/20/20 08:21 10/20/20 08:21 10/20/20 08:21 10/20/20 08:21 10/20/20 08:21 Oxygen Delivery Method Room Air Weight: 155.299 kg Body Mass Index (BMI) 55.2 Intake & Output: Intake and Output for Last 24 Hours 10/18/20 10/19/20 10/20/20 23:59 23:59 23:59 Intake Total 4875.55 / 5197.42 321.87 / 321.87 Output Total 2500 / 2500 450 / 450 Balance 2375.55 / 2697.42 -128.13 / -128.13 Lab / Micro Data Result Diagrams: 10/19/20 05:20 10/17/20 19:45 Physical Exam Const alert and oriented x3 General Appearance: cooperative HEENT normocephalic Neck General: normal visual inspection GI soft to palpation and non-distended GI Narrative: Fundus firm Extremity normal to inspection and no calf tenderness Skin no rashes or lesions noted Neuro oriented x3 and CN's II-XII intact bilaterally Psych mental status grossly normal Assessment & Plan (1) Gestational diabetes mellitus (GDM): QUALIFIERS: Gestational diabetes mellitus control: oral hypoglycemic-controlled Trimester: unspecified trimester Qualified Code(s): O24.415 - Gestational diabetes mellitus in , controlled by oral hypoglycemic drugs (2) Second degree laceration of perineum, delivered, current hospitalization: (3) Delivery outcome of liveborn infant: QUALIFIERS: Number of infants delivered: single infant Qualified Code(s): Z37.0 - Single live (4) Vacuum extraction, delivered, current hospitalization:
--- NOTE | 2020-10-20 08:28 | PCM.DC ---
Discharge Instructions Diet Discharge Diet: No restrictions Activity May resume sexual activity in: 6-8 weeks Dressing / Incision Call your doctor if you observe: Fever of 101 or Higher, Inability to urinate, Using more than 1 pad per hour and Uncontrolled pain Follow Up Care Please Follow Up With: Khushboo Malone MD When: 1-2 weeks post and again at 6 weeks post . [phone] Test Results: Test results from this visit will be discussed in further detail at your follow-up appointment, if applicable. Discharge Plan Admission Admit Date/Time: 10/17/20 18:45 Attending Provider: Sumaya Urbina Primary Care Provider: Care PhysicianEmmanuelle Primary Instructions Forms: Information Discharge Orders/Prescriptions Prescriptions: New ibuprofen 600 mg Tablet 600 mg PO Q6H PRN PRN (Reason: Pain Score 1-3) Qty: 0 RF: 0 Continued metformin 750 MG tablet extended release 24 hr 750 mg PO BID RF: 0 vit no.[id number] 1 EACH tablet 1 each PO DAILY RF: 0 Discontinued ondansetron 4 MG tablet 4 mg PO Q8H PRN PRN (Reason: Nausea) Qty: 10 RF: 0 Referrals / Follow Up: Care Physician,No Primary [Primary Care Provider] - Disposition Disposition (needs filled in before D/C Order can be placed): Home, Self Care
== END 2020-10-20 11:25 | disposition home or self-care (01) | DRG 807 ==
PROVIDERS: Obstetrics & Gynecology; Admitting Provider Obstetrics & Gynecology; Visit Provider Obstetrics & Gynecology
DX: O24.425 Gestational diabetes mellitus in childbirth, controlled by oral hypoglycemic drugs (principal); Z37.0 Single live birth; O99.214 Obesity complicating childbirth; E66.9 Obesity, unspecified; F17.200 Nicotine dependence, unspecified, uncomplicated; O99.334 Smoking (tobacco) complicating childbirth; Z3A.39 39 weeks gestation of pregnancy; O70.1 Second degree perineal laceration during delivery; O69.81X0 Labor and delivery complicated by cord around neck, without compression, not applicable or unspecified; O75.89 Other specified complications of labor and delivery
CPT/HCPCS: 59025; 59050; 82565; 82570; 82962; 84156; 84450; 84460; 84550; 85025; 85027; 86850; 86900; 86901; 99218; J7120; A4216; G0378; J2405

== ENCOUNTER 2024-05-19 02:46 | Inpatient (IN) | payer OTHER, SELFPAY ==
[2024-05-19] VITALS (65 sets, daily range): BP systolic 114–173; BP diastolic 57–100; PULSE 69–100; RESP 16–20; TEMP 36.3–37.2; O2SAT 92–100; BMI 55.3
[2024-05-19 02:36] LABS: ROM Internal Control Test YES-OK TO RESULT pt. (Internal QC)
[2024-05-19 02:37] LABS: ROM Patient Test POSITIVE (Negative); Record Kit Lot#, ROM+ K3294
--- NOTE | 2024-05-19 03:53 | HP.PCM.OB_ITS ---
HPI - General General Date of Admission: 05/19/24 HPI Narrative ANNE HERZOG, is a 43 F at 36.3 weeks gestation who presents with leaking of fluid. Stated she felt a gush of fluid and continues to leak. Patient had planned primary section for transverse presentation scheduled in 2 weeks. Maternal Data Information TEOFILO Calculator Estimated Delivery Date Method Current WG Current Estimate 06/13/24 Manual 36w 3d PFSH PFSH Medical History (Updated 05/19/24 @ 04:03 by Anika Colvin CNM) Gestational diabetes Infertility Home Medications ?Medication ?Instructions ?Recorded ?Last Taken ?Type metformin 750 mg tablet,extended 750 mg PO BID IVF 05/18/24 History release 24 hr vits no.130-ferrous fum 1 each PO DAILY pregn ade 06/20/20 05/18/24 History 27 mg iron-folic acid 800 mcg tablet ibuprofen 600 mg tablet 600 mg PO Q6H PRN PRN Pain S core 10/20/20 Unknown Rx 1-3 #0 tabs aspirin 81 mg capsule 162 mg PO DAILY prevention p re-e 05/19/24 05/18/24 History Allergy/AdvReac Type Severity Reaction Status Date / Time No Known Allergies Allergy Verified 05/19/24 02:23 Surgical History (Updated 05/19/24 @ 04:03 by Anika Colvin CNM) History of surgery Social History Smoking Status: Never smoker History Elective abortions Hx Para 1 Spontaneous abortions Hx # Term Pregnancies Ectopic pregnancies Hx # Pregnancies Multiple births # of living children NST FHR Rate Baby A Baseline: 155 Variability:: Moderate Accelerations:: 15 x 15 Decelerations:: None NST Reactive:: Yes FHR Category:: Category I Uterine Activity:: irritability ROS Eyes Eyes: Denies blurry vision, change in vision or spots in vision ENT HEENT: Denies dizziness or headache(s) Cardiovascular Cardiovascular: Denies abdominal pain, chest pain or dyspnea Respiratory/Chest Respiratory/Chest: Denies cough, dyspnea, shortness of breath at rest or shortness of breath with exertion Gastrointestinal Gastrointestinal: Denies abdominal pain, diarrhea or vomiting Genitourinary Genitourinary: Denies change in urinary stream, difficulty urinating or dysuria Musculoskeletal Musculoskeletal: Reports none Integumentary Integumentary: Denies rash Neurologic Neurologic: Denies dizziness, headache(s), memory loss or weakness Psychiatric Psychiatric: Reports none Vital Signs Vital Signs Vital Signs: 05/19/24 02:15 05/19/24 02:15 05/19/24 02:16 Temperature Temperature Source Pulse Rate 98 Respiratory Rate Blood Pressure 137/85 H BP Systolic 137 BP Diastolic 85 Pulse Ox 96 05/19/24 02:16 05/19/24 02:16 05/19/24 02:16 Temperature Temperature Source Temporal Pulse Rate 90 Respiratory Rate Blood Pressure BP Systolic BP Diastolic Pulse Ox 92 05/19/24 02:16 05/19/24 02:16 Temperature 97.4 F L Temperature Source Pulse Rate Respiratory Rate 18 Blood Pressure BP Systolic BP Diastolic Pulse Ox Weight Weight: 353 lb Body Mass Index (BMI) 55.3 Physical Exam Const alert, oriented x3 and no apparent distress General Appearance: cooperative Orientation / Consciousness: awake Exam Limitations: no limitations HEENT normocephalic Head and Scalp: normal to inspection Eyes General Eye: normal appearance of both eyes Neck full ROM and no lymphadenopathy Lymph Lymphatic: no lymphadenopathy noted Chest inspection of chest normal Resp normal respiratory effort, normal air movement and clear to auscultation bilaterally Effort and Inspection: able to speak in complete sentences and symmetric chest movement Cardio regular rate and regular rhythm GI normal to inspection, nondistended, normoactive bowel sounds Manual OB Exam: presentation cephalic Back/Spine normal ROM Extremity full ROM and no calf tenderness Skin no rashes or lesions noted General Skin Exam: no breakdown Neuro oriented x3 and CN's II-XII intact bilaterally Psych mental status grossly normal and thought process normal Labs Labs Labs: Blood Type O POSITIVE Antibody Screen NEGATIVE Hct 40.8 % (37-47) Hgb 13.8 g/dL (12.0-15.0) Syphilis Total Ab Pending Rhogam given: No Assessment & Plan (1) BMI 50.0-59.9, adult: (2) PROM (premature rupture of membranes): (3) 36 weeks gestation of : (4) AMA (advanced maternal age) multigravida 35+: (5) Supervision of high risk elderly primigravida in third trimester: (6) History of vacuum extraction assisted delivery: PLAN: Plan ROM plus-POSITIVE Dr. Reese on unit and completed bed side ultrasound which shows vertex position Admit to labor and delivery Rapid GBS collected- Start PCN until resulted CE -2
[2024-05-19] MEDS: Lactated Ringers 1,000 ML 50 ML IV (04:00)
[2024-05-19 04:03] LABS: Absolute Neutrophil Count 7.4 X10^3/uL (2.0-7.7); Basophil# 0.06 X10^3/uL; Basophil% 0.6 % (0-1); Eosinophil# 0.19 X10^3/uL; Eosinophils% 1.9 % (0-5); Hematocrit 40.8 % (37-47); Hemoglobin 13.8 g/dL (12.0-15.0); Mean Corp Hgb Conc 33.8 g/dL (32-36); Mean Corpuscular Hgb 30.9 pg (27.0-32.0); Mean Corpuscular Volume 91.3 fL (81-99); Mean Platelet Vol. 10.5 fl (6.2-12.0); Monocyte# 0.73 X10^3/uL; Monocyte% 7.3 % (0-10); NRBC Flagged by Analyzer 0 % (0-5); Neutrophil # 7.44 X10^3/uL (2.7-7.7); Neutrophil % 74.7 % (47-70); Platelet Count 283 K/mm3 (150-450); RBC Distribution Width CV 13.3 % (11.6-14.6); RBC Distribution Width SD 43.8 fl (35.1-43.9); Red Blood Count 4.47 M/mm3 (4.2-5.4)
[2024-05-19] MEDS: Penicillin G Pot 5,000,000 UNITS in 0.9% Normal Saline (100mL MB+) 100 ML 150 UNITS IV (04:22)
[2024-05-19 04:27] LABS: Syphilis Antibodies Nonreactive (Nonreactive)
[2024-05-19] MEDS: Ondansetron 4 MG/2 ML Vial IV ×2 (04:29→08:34)
--- NOTE | 2024-05-19 04:33 | PCM.PN.BLA ---
Progress Note At bedside to check on patient again. Ctx's getting more uncomfortable for her and continuing to leak fluid. Assessment & Plan Assessment/Plan (1) History of vacuum extraction assisted delivery: (2) Supervision of high risk elderly primigravida in third trimester: (3) AMA (advanced maternal age) multigravida 35+: (4) 36 weeks gestation of : (5) PROM (premature rupture of membranes): PLAN: Cvx /-2, vertex with BBOW. Bedside TAUS performed on admission and vertex presentation noted. Patient would like epidural first before rupture of forebag. She states she is getting more uncomfortable and does not want to feel pain.
[2024-05-19] MEDS: fentaNYL-bupivacaine (epidural) 100 ML BAG EPIDURAL (05:15)
[2024-05-19] MEDS: Lactated Ringers 1,000 ML 200 ML IV (06:23)
--- NOTE | 2024-05-19 08:03 | PCM.PN.BLA ---
Progress Note patient seen at bedside, has epidural but not getting much relief. pt is 9.5cm/100/-2.
[2024-05-19] MEDS: Penicillin G 3,000,000 Units 50 ML 100 UNITS IV (09:00)
--- NOTE | 2024-05-19 09:00 | PCM.PN.BLA ---
Progress Note pt feeling more pressure- VE: /-2 head now well applied- can feel cervix on right side now. epidural still not giving much relief.
[2024-05-19] MEDS: Oxytocin 10 UNITS/ML Vial IM (09:43)
[2024-05-19] MEDS: Oxytocin 15 Units/NS 250ml 15 UNITS/250 ML IV.SOLN 83 UNITS IV (09:47)
[2024-05-19] MEDS: Lidocaine 1% (20 ml mdv) 20 ML Vial INFILT (09:48)
--- NOTE | 2024-05-19 10:08 | OB.VAGDELI_ITS ---
Maternal Data Information TEOFILO Calculator Estimated Delivery Date Method Current WG Current Estimate 06/13/24 Manual 36w 3d Vaginal Delivery Maternal Presentation Maternal Presentation: Active Labor and Spontaneous Rupture of Membranes Vaginal Delivery Information Procedure Performed: Spontaneous Vaginal Delivery Surgeon/Practitioner: Khushboo Malone Date of Procedure: 05/19/24 Pre-Procedure Diagnosis: 36 weeks, PROM, AMA, Obesity in , Post-Procedure Diagnosis: same, live female Type of anesthesia: Epidural (minimal relief) and Local with 1% Lidocaine (given for repair of laceration ) Estimated Blood Loss: 150cc Time of Delivery: 09:41 Findings Description of procedure: Patient progressed to fully dilated. Good maternal pushing efforts delivered the head followed by the anterior shoulder gentle downward traction and spontaneously the posterior shoulder followed by the rest the infant's body without complication. The infant was then placed on the mother's lower abdomen for immediate to allow for delayed cord clamping as the cord was very short. Delayed cord clamping was performed. Once the cord was clamped and cut the was taken to the warmer for evaluation and then brought back to the mother for skin to skin. Second-degree vaginal laceration was appreciated l idocaine 1% was injected for repair second-degree was repaired using 2-0 Vicryl and a first-degree vaginal laceration was appreciated this was repaired using 3- 0 Rapide. Excellent stasis was appreciated. Patient tolerated well. Presentation: Vertex Amniotic Membrane Rupture Type: Spontaneous Amniotic Fluid Description: Clear Placental Delivery Description: Expressed Placenta Disposition: [facility] Cord Vessel Description: 3 Vessels Cord Entanglement: None A Gender: Female (1 minute): 9 (5 minute): 10 Delayed Cord Clamping: Yes Chef Under photography sales associate: No Post Vaginal Deli Medications given after delivery: IM Pitocin Episiotomy Description: None Laceration: 1st degree (vaginal- repaired 3-0 rapide ) and 2nd degree (vaginal - repaired with 2-0 vicryl ) Complication Complications: No
[2024-05-19] MEDS: Acetaminophen 500 MG Tablet 1000 MG PO ×3 (11:13→23:10)
[2024-05-19] MEDS: 0.9% Saline Lock 10 ML Syringe IV (12:48)
[2024-05-19] MEDS: Ibuprofen 600 MG Tablet PO ×2 (12:50→18:55)
[2024-05-19] MEDS: Nystatin Powder 15gm Bottle 1 APPLIC TOPICAL (16:49)
[2024-05-19] MEDS: METFORMIN HCL 750 MG TAB.ER.24H PO (18:56)
[2024-05-20] MEDS: Ibuprofen 600 MG Tablet PO (01:20)
[2024-05-20 05:20] VITALS: BP 111/64; PULSE 68; RESP 16; TEMP 36.6
[2024-05-20 08:20] VITALS: BP 124/68; PULSE 73; RESP 16; TEMP 36.4
--- NOTE | 2024-05-20 09:05 | PCM.PN.OB ---
Subjective Subjective Denies complaints Objective Data Objective Data Vital Signs: Vital Signs Temp Pulse Resp BP Pulse Ox O2 Del Method 97.5 F L 73 16 124/68 H 99 Room Air 05/20/24 08:20 05/20/24 08:20 05/20/24 08:20 05/20/24 08:20 05/19/24 20:05 05/20/24 05:20 Oxygen Delivery Method Room Air Weight: 353 lb Body Mass Index (BMI) 55.3 Intake & Output: Intake and Output for Last 24 Hours 05/18/24 05/19/24 05/20/24 23:59 23:59 23:59 Intake Total 2364.50 / 2364.50 Output Total 150 / 150 Balance 2214.50 / 2214.50 Lab / Micro Data 05/19/24 03:40 Micro: Microbiology 05/19/24 03:00 Genital vaginal Group B Streptococcus (PCR) - Final Physical Exam Const alert, oriented x3 and no apparent distress HEENT normocephalic GI soft to palpation, non-tender and non-distended GI Narrative: fundus firm, mid & below umbilicus Extremity normal to inspection and no calf tenderness Assessment & Plan (1) Vaginal delivery: PLAN: Plan BP's normal to mildly elevated. Will check preE labs and montitor BP's. Possible d/c to home later today per patient request.
[2024-05-20 10:33] LABS: Hematocrit 38.7 % (37-47); Hemoglobin 13.1 g/dL (12.0-15.0); Mean Corp Hgb Conc 33.9 g/dL (32-36); Mean Corpuscular Hgb 30.8 pg (27.0-32.0); Mean Corpuscular Volume 90.8 fL (81-99); Mean Platelet Vol. 10.4 fl (6.2-12.0); Platelet Count 258 K/mm3 (150-450); RBC Distribution Width CV 13.6 % (11.6-14.6); RBC Distribution Width SD 45.2 fl (35.1-43.9); Red Blood Count 4.26 M/mm3 (4.2-5.4); White Blood Count 9.5 K/mm3 (4.4-11.0)
[2024-05-20 11:59] LABS: ALB/GLOB Ratio 1.1 RATIO (0.9-2.4); AST(SGOT) 28 U/L (<=31); Alanine Aminotransfer ALT/SGPT 25 U/L (<=34); Albumin, Serum 3.2 g/dL (3.5-5.0); Alkaline Phosphatase 143 U/L (35-104); Anion Gap 11 (5-15); BUN 13 mg/dL (4-19); Chloride 107 mmol/L (98-108); Creatinine, Serum 0.75 mg/dL (0.70-1.20); EST Glomerular Filtration Rate 102 (>60); Globulin 2.8 g/dL (2.2-4.2); Glucose 106 mg/dL (70-99); Potassium 4.2 mmol/L (3.3-5.1); Sodium Level 138 mmol/L (133-145); Total Bilirubin 0.32 mg/dL (0.00-1.30); Uric Acid 5.1 mg/dL (2.6-6.0)
--- NOTE | 2024-05-20 12:19 | DS.PCM_ITS ---
Providers Date of Admission: 05/19/24 Primary Care Physician: Emmanuelle Primary Care Phys Reason For Visit: VAGINAL DELIVERY Diagnosis Discharge Diagnosis (1) Vaginal delivery: Status: Acute Code(s): O80 - Encounter for full-term uncomplicated delivery Plan BP's normal to mildly elevated. Will check preE labs and montitor BP's. Possible d/c to home later today per patient request. Medications at Discharge Home Medications metformin 750 mg tablet,extended release 24 hr 750 mg PO BID IVF 06/20/20 vits no.130-[id number] fum 27 mg iron-folic acid 800 mcg tablet 1 each PO DAILY 06/20/20 acetaminophen 500 mg tablet 1,000 mg (2 x 500 mg) PO Q6H PRN PRN Pain 1-10 Or Fever #0 tabs 05/20/24 ibuprofen 600 mg tablet 600 mg PO Q6H PRN PRN Pain Score 1-10 #0 tabs 05/20/24 Hospital Course Operations None Procedures None Summary of Care Provided Minutes Spent on Discharge: 20 Weight / BMI Weight Weight: 353 lb Body Mass Index (BMI) 55.3 ABG / Lab / Microbiology Data 05/20/24 10:15 05/20/24 10:15 Laboratory: Laboratory Results - last 24 hr 05/20/24 10:15: WBC 9.5, RBC 4.26, Hgb 13.1, Hct 38.7, MCV 90.8, MCH 30.8, MCHC 33.9, RDW Std Deviation 45.2 H, RDW Coeff of Fredrick 13.6, Plt Count 258, MPV 10.4, Sodium 138, Potassium 4.2, Chloride 107, Carbon Dioxide 20.0 L, Anion Gap 11, BUN 13, Creatinine 0.75, Estim Creat Clear Calc 157.40, Est GFR (MDRD) Non-Af 102, BUN/Creatinine Ratio 17.0, Glucose 106 H, Uric Acid 5.1, Calcium 9.0, Total Bilirubin 0.32, AST 28, ALT 25, Alkaline Phosphatase 143 H, Total Protein 6.0, A lbumin 3.2 L, Globulin 2.8, Albumin/Globulin Ratio 1.1 Microbiology: Microbiology 05/19/24 03:00 Genital vaginal Group B Streptococcus (PCR) - Final D/C Instructions Discharge Diet: No restrictions Discharge Activity: May Shower May resume sexual activity in: 6 weeks Weight Bearing Status: Weight bearing as tolerated Call your doctor if you observe: Fever of 101 or Higher, Coldness, Increased Pain, Change in Color, Inability to urinate, Inability to have a bowel movement, Using more than 1 pad per hour, Shortness of breath, Dizziness, Fainting spells, Chest pain, Increased palpitations (irregular heartbeat), Calf discomfort and Uncontrolled pain DC O2, CPAP, BIPAP Needs Home O2 Discharge instructions: No Please Follow Up With: Khushboo Malone MD When: Follow up in 2 and 6 weeks for visits. Meaningful Use Info Meaningful Use Meaningful Use Diagnoses (Choose all that apply): None applicable Ischemic Stroke Statin Dosing Therapy Reference: STATIN DOSE THERAPY REFERENCE: * Patients > 75 years receive moderate or high dose statin therapy. * Patients 75 years or YOUNGER should receive HIGH intensity statin dose unless contraindicated. You will be required to document reason for non-treatment if statin daily dose does not meet guidelines. HIGH DOSE STATIN THERAPY DAILY Atorvastatin > than or = to 40 mg Rosuvastatin > than or = to 20 mg Amlodipine + Atorvastatin > than or = to 2.5/40 mg Ezetimibe + Simvastatin 10/80 mg Simvastatin 80mg Discharge Plan Admission Admit Date/Time: 05/19/24 02:46 Primary Reason for Your Visit: Vaginaly delivery Attending Provider: Khushboo Malone Primary Care Provider: Care Emmanuelle Kay Primary Discharge Orders/Prescriptions Prescriptions: New acetaminophen 500 mg Tablet 1,000 mg PO Q6H PRN PRN (Reason: Pain 1-10 Or Fever) Qty: 0 0RF ibuprofen 600 mg Tablet 600 mg PO Q6H PRN PRN (Reason: Pain Score 1-10) Qty: 0 0RF Continued metformin 750 MG tablet extended release 24 hr 750 mg PO BID vit [id number] 1 EACH tablet 1 each PO DAILY Discontinued ibuprofen 600 mg Tablet 600 mg PO Q6H PRN PRN (Reason: Pain Score 1-3) Qty: 0 0RF aspirin 81 mg capsule 162 mg PO DAILY Referrals / Follow Up: Care PhysicianEmmanuelle Primary [Primary Care Provider] - Disposition Disposition (needs filled in before D/C Order can be placed): Home, Self Care
--- NOTE | 2024-05-24 13:58 | NURSING ---
Follow up phone call: Patient states she is feeling well, still taking some Tylenol. Patient reports their bleeding is decreasing with not s+s of pp complications. is doing well, had 2 days check up with some weight loss so their ped up their formula intake and now things are going better. Patient was satisfied with their care.
== END 2024-05-20 13:20 | disposition home or self-care (01) | DRG 807 ==
LOC: WPOUT 02:51 → WP 02:51
PROVIDERS: Obstetrics & Gynecology; Admitting Provider Obstetrics & Gynecology; Referring Provider Obstetrics & Gynecology; Visit Provider Obstetrics & Gynecology
DX: O42.913 Preterm premature rupture of membranes, unspecified as to length of time between rupture and onset of labor, third trimester (principal); Z37.0 Single live birth; R03.0 Elevated blood-pressure reading, without diagnosis of hypertension; O70.0 First degree perineal laceration during delivery; O99.214 Obesity complicating childbirth; O70.1 Second degree perineal laceration during delivery; O99.893 Other specified diseases and conditions complicating puerperium; Z3A.36 36 weeks gestation of pregnancy; Z79.82 Long term (current) use of aspirin
CPT/HCPCS: 59025; 59050; 76815; 80053; 84112; 84550; 85025; 85027; 86780; 86850; 86900; 86901; 87081; 87653; 99221; A4216; G0378; J2405